=== PATIENT | male | born 1975 | race Caucasian/White ===

== ENCOUNTER → 2018-12-12 | Outpatient (CLI) | payer BC | LOC: COL.RAD 08:01 | DX: R53.83 Other fatigue (principal) | CPT/HCPCS: A9541 ==

== ENCOUNTER 2019-01-09 09:01 | Outpatient (RCR) | payer BC | END 2019-04-09 | disposition home or self-care (01) | LOC: WSST | DX: K21.9 Gastro-esophageal reflux disease without esophagitis (principal) ==

== ENCOUNTER → 2020-07-13 | Outpatient (CLI) | payer BC ==
[~2020-07-13] MED LIST: GLUCOPHAGE1000 MG PO; GRALISE600 MG PO; JANUVIA 100MG100 MG PO; PROTONIX 40MG T40 MG PO; TOPROL XL 50MG50 MG PO; TRULICITY1.5 MG/0.5 SQ
== END ==
LOC: COL.VAS 13:05
DX: I65.23 Occlusion and stenosis of bilateral carotid arteries (principal)

== ENCOUNTER → 2020-07-14 | Outpatient (CLI) | payer BC ==
[~2020-07-14] VITALS: Ht 190.5 cm; Wt 140.2 kg
[2020-07-14 11:15] VITALS: BP 156/94; PULSE 90
[2020-07-14 12:04] VITALS: BP 155/92; PULSE 85
[2020-07-14 12:05] VITALS: BP 141/71; PULSE 114
[2020-07-14 12:06] VITALS: BP 141/74; PULSE 108
[2020-07-14 12:07] VITALS: BP 129/68; PULSE 106
== END ==
LOC: COL.CARD 10:45
DX: R06.02 Shortness of breath (principal)
CPT/HCPCS: A9500; J2785